=== PATIENT | male | born 1995 | race Caucasian/White ===

== ENCOUNTER 2017-02-07 13:14 | Emergency (ER) | payer BC ==
[~2017-02-07] VITALS: Ht 175.3 cm; Wt 71.1 kg
[2017-02-07 13:17] VITALS: TEMP 36.7; Ht 175.3 cm; Wt 71.1 kg
[2017-02-07] MEDS ORDERED: ONDANSETRON INJ 2 MG/ML 2 ML VIAL IV STA (13:50)
[2017-02-07] MEDS ORDERED: SODIUM CHLORIDE 0.9% 1000ML 1,000 ML IV STA (13:50)
[2017-02-07] MEDS ORDERED: DICYCLOMINE HCL 10 MG CAP PO ONE (14:00)
[2017-02-07 14:24] LABS: BASO % 0.4 %; BASO ABS # 0.04 K/uL (0-0.2); COMPLETE YES; EOS % 0.6 %; HEMATOCRIT 43.5 % (42-52); IG% 0.6 %; LYMPH % 12.7 %; LYMPH ABS # 1.22 K/uL (1.2-3.4); MEAN CELL VOLUME 83.2 fL (80-100); MEAN CORPUSCULAR HEMOGLOBIN 29.3 pg (25-34); MEAN CORPUSCULAR HGB CONC 35.2 g/dl (32-36); MEAN PLATELET VOLUME 11.5 fL (7.4-10.4); MONO % 9.9 %; NEUT % 75.8 %; PLATELET COUNT 192 K/uL (130-400); RED BLOOD COUNT 5.23 M/uL (4.7-6.1); WHITE BLOOD COUNT 9.58 K/uL (4.8-10.8)
[2017-02-07 14:42] LABS: BUN/CREATININE RATIO 8.7 (10-20); CALCIUM 9.2 mg/dl (8.5-10.1); CREATININE 1.1 mg/dl (0.60-1.40); POTASSIUM 3.4 mmol/L (3.5-5.1)
--- NOTE | 2017-02-07 16:59 | DIAGNOSTIC IMAGING REPORT ---
CT SCAN OF THE ABDOMEN AND PELVIS WITH IV CONTRAST CLINICAL HISTORY: Right lower quadrant abdominal pain. COMPARISON STUDY: No priors. TECHNIQUE: Following the IV administration of 119 cc of Optiray 320, CT scan of the abdomen and pelvis is performed from the lung bases to the proximal femora. Images are reviewed in the axial, sagittal, and coronal planes. IV contrast was administered without complication. Automated dose control exposure was utilized. CT DOSE: 273.89 mGy.cm FINDINGS: Lung bases: The heart is normal in size and without pericardial effusion. A small fat-containing Bochdalek hernia is incidentally noted at the right lung base. The lung bases are otherwise clear. Liver: The contrast-enhanced liver is normal in size, contour, and attenuation. There is no intrahepatic biliary ductal dilatation. The hepatic veins and portal veins are patent. Gallbladder: Unremarkable. Spleen: Normal in size and attenuation. Pancreas: Unremarkable. Adrenal glands: Unremarkable. Kidneys: The contrast enhanced kidneys are normal in size and without hydronephrosis. The kidneys enhance symmetrically. There is a retroaortic left renal vein. Abdominal vasculature: The abdominal aorta is normal in course and caliber. Bowel: The small bowel and colon are normal in course and caliber. Mild fold thickening is suggested in the colon. There is no significant colonic wall thickening or surrounding inflammation. The appendix is well-visualized and normal. Peritoneum: There is no intraperitoneal free air or abdominal ascites. Lymphadenopathy: There are numerous mildly enlarged mesenteric lymph nodes in the right lower quadrant measuring up to 1.3 cm in short axis. There are no enlarged upper abdominal, retroperitoneal, pelvic sidewall, or inguinal lymph nodes. Pelvic viscera: The bladder, prostate, and seminal vesicles are normal as visualized. Skeletal structures: No lytic or blastic lesions are seen. IMPRESSION: 1. The appendix is normal in appearance. There is no CT evidence of acute appendicitis. 2. There are mildly enlarged mesenteric lymph nodes in the right lower quadrant. Additionally, mild colonic fold thickening is suggested. This is nonspecific and could be seen in the setting of a mild enterocolitis or possibly mesenteric adenitis. Clinical correlation will be required. Electronically signed by: Nathen Rosales M.D. 02/07/2017 4:58 PM Dictated Date/Time: 02/07/2017 4:48 PM
[2017-02-07] MEDS ORDERED: OPTIRAY 320 IV PRN (17:00)
[2017-02-07 17:12] LABS: URINE APPEARANCE CLEAR (CLEAR); URINE BILIRUBIN NEG (NEG); URINE COLOR DK YELLOW; URINE NITRITE NEG (NEG); URINE PH 5.5 (4.5-7.5); URINE SPECIFIC GRAVITY 1.023 (1.000-1.030); UROBILINOGEN NEG (NEG)
[2017-02-07 17:19] VITALS: BP 140/80; PULSE 62; O2SAT 99
[2017-02-07] MEDS ORDERED: POTASSIUM CHLORIDE 10 MEQ TABCR PO STA (17:19)
[2017-02-07 17:25] LABS: MANUAL MICROSCOPIC REQUIRED? NO; REVIEW REQ? NO
--- NOTE | 2017-02-07 17:31 | EMERGENCY ROOM VISIT NOTE ---
History Report prepared by Ryanne: Efra Bejarano Under the Supervision of: Dr. John Cyr M.D. First contact with patient: 13:43 Chief Complaint: ABDOMINAL PAIN Stated Complaint: STOMACH PAIN, DIARRHEA, MUCUS/BLOOD IN STOOL History of Present Illness The patient is a 21 year old male who presents to the Emergency Room with complaints of a worsening illness that started 4 days ago after eating lunch. He says that he has been having abdominal pain, which is worst in the right lower quadrant when he feels the need to have a bowel movement. The patient has also noted an increased urgency to have bowel movements, but when he does go, he only has a little diarrhea. The patient states that the abdominal pain is worsened when he feels the need to have a bowel movement. Otherwise, the abdominal pain is more dull and diffuse in the low abdomen. The patient says that he has been waking up at night 4 to 5 times to go to the bathroom. He states that he noticed some bright red blood in his stools with some mucous starting 2 days ago, and more recently, he has noticed a bit of blood on the toilet paper. The patient says that his anus feels a bit raw. The patient denies any vomiting, fevers, or urinary symptoms. He adds that he went hiking last weekend but did not drink for many streams or ponds. The patient notes no chronic medical problems. He has not had any recent foreign travel or antibiotic use. He has no family history of Crohn's, ulcerative colitis, or IBS. No sick contacts. Source of History: patient Onset: 4 days ago Position: other (global - illness) Timing: worsening Associated Symptoms: + abdominal pain, + hematochezia, + diarrhea, No chills , No vomiting, No urinary symptoms Note: Associated symptoms: Increased urgency to have bowel movements. Review of Systems See HPI for pertinent positives & negatives. A total of 10 systems reviewed and were otherwise negative. Past Medical & Surgical Medical Problems: (1) No chronic diseases present Family History No pertinent family history Social History Smoking Status: Never Smoker Smokeless Tobacco Use: No Alcohol Use: occasionally Marital Status: in relationship Housing Status: lives with family Occupation Status: student Current/Historical Medications No Active Prescriptions or Reported Meds Allergies Coded Allergies: No Known Allergies (Unverified , 02/07/17) Physical Exam Vital Signs Date Time Temp Pulse Resp B/P (MAP) Pulse Ox O2 Delivery O2 Flow Rate FiO2 02/07/17 17:19 62 16 140/80 99 Room Air 02/07/17 15:16 56 18 144/92 100 Room Air 02/07/17 14:25 68 18 135/91 100 02/07/17 13:17 36.7 77 18 161/95 100 Room Air Physical Exam Constitutional: Vital signs reviewed. Eyes: Pupils are equal round reactive to light. Conjunctiva are noninjected. ENT: Pharynx is clear without erythema or exudate. Mucous membranes are moist. Neck supple without meningeal signs. Respiratory: Clear to auscultation bilaterally. Breath sounds are equal bilaterally. Cardiovascular: Regular rate and rhythm. No rubs or gallops. GI: Soft, nondistended. Right lower quadrant tenderness, no guarding. Bowel sounds are present. Musculoskeletal: No peripheral edema. No lower extremity tenderness. Integumentary: No cyanosis. Neurological: The patient is awake and alert. No focal deficits. Psychiatric: Normal affect. Medical Decision & Procedures ER Provider Diagnostic Interpretation: CT results as stated below per my review and radiologist interpretation. CT SCAN OF THE ABDOMEN AND PELVIS WITH IV CONTRAST CLINICAL HISTORY: Right lower quadrant abdominal pain. COMPARISON STUDY: No priors. TECHNIQUE: Following the IV administration of 119 cc of Optiray 320, CT scan of the abdomen and pelvis is performed from the lung bases to the proximal femora. Images are reviewed in the axial, sagittal, and coronal planes. IV contrast was administered without complication. Automated dose control exposure was utilized. CT DOSE: 273.89 mGy.cm FINDINGS: Lung bases: The heart is normal in size and without pericardial effusion. A small fat-containing Bochdalek hernia is incidentally noted at the right lung base. The lung bases are otherwise clear. Liver: The contrast-enhanced liver is normal in size, contour, and attenuation. There is no intrahepatic biliary ductal dilatation. The hepatic veins and portal veins are patent. Gallbladder: Unremarkable. Spleen: Normal in size and attenuation. Pancreas: Unremarkable. Adrenal glands: Unremarkable. Kidneys: The contrast enhanced kidneys are normal in size and without hydronephrosis. The kidneys enhance symmetrically. There is a retroaortic left renal vein. Abdominal vasculature: The abdominal aorta is normal in course and caliber. Bowel: The small bowel and colon are normal in course and caliber. Mild fold thickening is suggested in the colon. There is no significant colonic wall thickening or surrounding inflammation. The appendix is well-visualized and normal. Peritoneum: There is no intraperitoneal free air or abdominal ascites. Lymphadenopathy: There are numerous mildly enlarged mesenteric lymph nodes in the right lower quadrant measuring up to 1.3 cm in short axis. There are no enlarged upper abdominal, retroperitoneal, pelvic sidewall, or inguinal lymph nodes. Pelvic viscera: The bladder, prostate, and seminal vesicles are normal as visualized. Skeletal structures: No lytic or blastic lesions are seen. IMPRESSION: 1. The appendix is normal in appearance. There is no CT evidence of acute appendicitis. 2. There are mildly enlarged mesenteric lymph nodes in the right lower quadrant. Additionally, mild colonic fold thickening is suggested. This is nonspecific and could be seen in the setting of a mild enterocolitis or possibly mesenteric adenitis. Clinical correlation will be required. Electronically signed by: Nathen Rosales M.D. 02/07/2017 4:58 PM Dictated Date/Time: 02/07/2017 4:48 PM Laboratory Results 02/07/17 14:07 Red Blood Count 5.23, Mean Corpuscular Volume 83.2, Mean Corpuscular Hemoglobin 29.3, Mean Corpuscular Hemoglobin Concent 35.2, Mean Platelet Volume 11.5, Neutrophils (%) (Auto) 75.8, Lymphocytes (%) (Auto) 12.7, Monocytes (%) (Auto) 9.9, Eosinophils (%) (Auto) 0.6, Basophils (%) (Auto) 0.4, Neutrophils # (Auto) 7.25, Lymphocytes # (Auto) 1.22, Monocytes # (Auto) 0.95, Eosinophils # (Auto) 0.06, Basophils # (Auto) 0.04 02/07/17 14:07 Test 02/07/17 14:07 White Blood Count 9.58 K/uL (4.8-10.8) Red Blood Count 5.23 M/uL (4.7-6.1) Hemoglobin 15.3 g/dL (14.0-18.0) Hematocrit 43.5 % (42-52) Mean Corpuscular Volume 83.2 fL (80-100) Mean Corpuscular Hemoglobin 29.3 pg (25-34) Mean Corpuscular Hemoglobin Concent 35.2 g/dl (32-36) Platelet Count 192 K/uL (130-400) Mean Platelet Volume 11.5 fL (7.4-10.4) Neutrophils (%) (Auto) 75.8 % Lymphocytes (%) (Auto) 12.7 % Monocytes (%) (Auto) 9.9 % Eosinophils (%) (Auto) 0.6 % Basophils (%) (Auto) 0.4 % Neutrophils # (Auto) 7.25 K/uL (1.4-6.5) Lymphocytes # (Auto) 1.22 K/uL (1.2-3.4) Monocytes # (Auto) 0.95 K/uL (0.11-0.59) Eosinophils # (Auto) 0.06 K/uL (0-0.5) Basophils # (Auto) 0.04 K/uL (0-0.2) RDW Standard Deviation 37.3 fL (36.4-46.3) RDW Coefficient of Variation 12.3 % (11.5-14.5) Immature Granulocyte % (Auto) 0.6 % Immature Granulocyte # (Auto) 0.06 K/uL (0.00-0.02) Urine Color DK YELLOW Urine Appearance CLEAR (CLEAR) Urine pH 5.5 (4.5-7.5) Urine Specific Coram 1.023 (1.000-1.030) Urine Protein NEG (NEG) Urine Glucose (UA) NEG (NEG) Urine Ketones 3+ (NEG) Urine Occult Blood NEG (NEG) Urine Nitrite NEG (NEG) Urine Bilirubin NEG (NEG) Urine Urobilinogen NEG (NEG) Urine Leukocyte Esterase NEG (NEG) Anion Gap 6.0 mmol/L (3-11) Est Creatinine Clear Calc Drug Dose 105.4 ml/min Estimated GFR () 109.9 Estimated GFR (Non- 94.8 BUN/Creatinine Ratio 8.7 (10-20) Calcium Level 9.2 mg/dl (8.5-10.1) Total Bilirubin 2.5 mg/dl (0.2-1) Direct Bilirubin 0.3 mg/dl (0-0.2) Aspartate Amino Transf (AST/SGOT) 16 U/L (15-37) Alanine Aminotransferase (ALT/SGPT) 21 U/L (12-78) Alkaline Phosphatase 71 U/L (45-117) Total Protein 8.1 gm/dl (6.4-8.2) Albumin 4.5 gm/dl (3.4-5.0) Lipase 87 U/L (73-393) Laboratory results as reviewed by me. Medications Administered Medications (Trade) Dose Ordered Sig/David Route Start Time Stop Time Status Last Admin Dose Admin Ondansetron HCl (Zofran Inj) 4 mg NOW STAT IV 02/07/17 13:50 02/07/17 13:52 DC 02/07/17 14:23 4 MG Dicyclomine HCl (Bentyl Cap) 10 mg NOW ONCE PO 02/07/17 14:00 02/07/17 14:01 DC 02/07/17 14:23 10 MG Sodium Chloride 1,000 ml @ 999 mls/hr Q1H1M STAT IV 02/07/17 13:50 02/07/17 14:50 DC 02/07/17 14:12 999 MLS/HR ED Course 1344: The patient was evaluated in room B5. A complete history and physical exam was performed. 1350: Ordered NSS 1000 ml @ 999 mls/hr IV, Zofran Inj 4 mg IV. 1400: Ordered Bentyl Cap 10 mg PO. 1600: I reevaluated the patient and I talked to him about the test results. He is waiting for his CT scan. 1716: I reevaluated the patient and talked to him about the test results. He is feeling well. The patient verbally expressed understanding and agreement of the treatment plan. The patient will be discharged. 1719: Ordered Klor-Con M10 40 meq PO. Medical Decision This is a 21-year-old male who presents with diarrhea and lower abdominal pain. Differential diagnosis includes acute appendicitis, abscess, perforation, ileitis, Crohn's disease, colitis, C. difficile. I did perform a limited focused review of portions of the patient's old chart on the electronic medical record. The patient has had no prior visits to this hospital. Blood Pressure Screening: Patient was found to have an elevated blood pressure and was referred to their primary doctor for recheck and further treatment. Medication Reconciliation: I attest that I have personally reviewed the patient' s current medication list. He currently has no daily medications. I did evaluate the patient as noted above. IV access was established. I did treat patient with Zofran and Bentyl. He was also given saline IV. I did order and personally review the patient's urinalysis as described above. I did order and review the patient's blood work as noted in the electronic medical record. His white blood cell count is not elevated. Potassium is slightly low likely secondary to diarrhea. Stool testing for C. difficile antigen is negative. A stool culture is pending. I did order a CT of the abdomen and pelvis. I did review the images myself as well as the radiology report as described above. He does have some lymphadenopathy and possible signs of enterocolitis. There is no evidence of acute appendicitis. I did reassess the patient. He is feeling better. I did discuss the test results with him. It is likely he has some type of viral enterocolitis. I did, however, recommend close follow up with his regular physician. He was discharged in good condition. Impression Primary Impression: Enterocolitis Additional Impression: Hypokalemia Scribe Attestation The scribe's documentation has been prepared under my direct and personally reviewed by me in its entirety. I confirm that the note above accurately reflects all work, treatment, procedures, and medical decision making performed by me. Departure Information Dispostion Home / Self-Care Prescriptions No Active Prescriptions or Reported Meds Referrals No Doctor, Assigned (PCP) Patient Instructions Diarrhea, ED Diet High Potassium, Hypokalemia Amrit, My [facility] Additional Instructions You have been examined and treated today on an emergency basis only. This is not a substitute for, or an effort to provide, complete comprehensive medical care. It is impossible to recognize and treat all injuries or illnesses in a single emergency department visit. It is therefore important that you follow up closely with your physician. Call as soon as possible for an appointment. Return for worsening symptoms or if you develop fever, vomiting, or any other concerning symptoms. Problem Qualifiers
--- NOTE | 2017-02-08 15:43 | Pharmacy Progress Note ---
ED Pharmacist Culture FollowUp Date of Service: Feb 08, 2017. Called patient regarding stool culture with Campylobacter. Prescription for azithromycin 500 mg po daily x3 days, 0 refill, called to [facility] in [place] at the patient's request. Counseled on the importance of proper hand hygiene and adequate hydration. Case discussed with Dr. Rios, who is the prescribing provider.
== END 2017-02-07 17:40 | disposition home or self-care (01) ==
LOC: C.EDB 13:16
DX: K52.9 Noninfective gastroenteritis and colitis, unspecified (principal); E87.6 Hypokalemia